=== PATIENT | male | born 1995 | race Caucasian/White ===

== ENCOUNTER 2024-03-01 16:42 | Emergency (ER) | payer OTHER ==
[~2024-03-01] VITALS: Ht 167.6 cm; Wt 113.4 kg
[2024-03-01 16:43] VITALS: BP_SYST 129; PULSE 69; RESP 18; TEMP 98.4; O2SAT 98
[2024-03-01] MEDS: DIPHTH,PERTUSS(ACELL),TET VAC 0.5 ML VIAL (Tdap) I.M. ONE (18:00)
[2024-03-01 21:04] VITALS: BP_SYST 129; PULSE 69; RESP 18; TEMP 98.4; O2SAT 98
== END 2024-03-01 21:04 | disposition home or self-care (01) ==
LOC: SED 16:42
DX: S61.232A Puncture wound without foreign body of right middle finger without damage to nail, initial encounter (principal); Z79.899 Other long term (current) drug therapy; W45.0XXA Nail entering through skin, initial encounter; Y93.89 Activity, other specified; Y92.89 Other specified places as the place of occurrence of the external cause; Y99.8 Other external cause status
CPT/HCPCS: 90715; 99283